=== PATIENT | female | born 1980 | race Caucasian/White ===

== ENCOUNTER 2020-04-08 19:08 | Emergency (ER) | payer MEDICAID, SELFPAY ==
[2020-04-08 19:16] VITALS: BP 118/72; PULSE 85; RESP 16; TEMP 36.6; O2SAT 98; BMI 22.6
--- NOTE | 2020-04-08 19:28 | PC.NURSE ---
Burning and itching sensation <1 month. Bactrim prescribed recently but did not complete the full course. Symptoms have nearly resolved at this time. Pt calm and cooperative.
[2020-04-08 19:35] VITALS: BP 115/69; PULSE 74; RESP 20; TEMP 36.8; O2SAT 97
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
[2020-04-08 20:00] VITALS: BP 114/71; PULSE 96; RESP 16; TEMP 36.9; O2SAT 98
[2020-04-08 20:05] LABS: Glucose Urine UA NEG (NEG); Leukocyte Esterase Urine NEG (NEG); Nitrite Urine NEG (NEG); Specific Gravity - Urine 1.025 (1.005-1.025); Urine Blood NEG (NEG); Urine Ketones NEG (NEG); Urine Protein NEG (NEG-TRACE)
[2020-04-08 20:07] LABS: Appearance Urine CLEAR; Color Urine YELLOW
[2020-04-08 20:08] LABS: UPreg QC Valid YES; Urine Pregnancy NEGATIVE (NEGATIVE)
[2020-04-08] MEDS: metroNIDAZOLE 500 MG TABLET 2000 MG PO (20:13)
[2020-04-08] MEDS: Azithromycin 500 MG TABLET 1000 MG PO (20:14)
[2020-04-08] MEDS: cefTRIAXone sodium 250 MG, Lidocaine HCl 1 % MPF 0.9 ML IM (20:15)
[2020-04-09 14:49] LABS: CT PCR NOT DETECTED (Not Detect.); NG PCR DETECTED (Not Detect.)
[2020-04-10 09:44] LABS: BV Int Neg Control Negative (Negative); BV Int Pos Control Positive (Positive)
== END 2020-04-08 20:18 | disposition home or self-care (01) ==
PROVIDERS: Physician Assistant; Emergency Provider Emergency Medicine; PCP Internal Medicine
DX: N72 Inflammatory disease of cervix uteri (principal); F17.200 Nicotine dependence, unspecified, uncomplicated; Z71.6 Tobacco abuse counseling; Z79.899 Other long term (current) drug therapy
CPT/HCPCS: 81003; 81025; 87480; 87491; 87510; 87591; 87660; 96372; 99284; J0696

== ENCOUNTER 2020-06-09 23:24 | Emergency (ER) | payer MEDICAID, SELFPAY ==
[2020-06-09 23:40] VITALS: BP 107/59; BP 128/84; PULSE 110; PULSE 98; RESP 17; TEMP 37.1; O2SAT 98; BMI 22.6
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
[2020-06-10] MEDS: Lidocaine HCl 1%/Epi 1:100,000 20 ML VIAL 10 ML INFILTRATI (00:08)
--- NOTE | 2020-06-10 00:08 | PC.NURSE ---
pt lidocaine was taken out by another rn administered by the doctor.
--- NOTE | 2020-06-10 00:09 | PC.NURSE ---
pt wants to leave ama. pt declines labs, ct, and anyfurther testing against medi advise. pt has been stapled to her head bleeding controlled. pt up walking around in the room with using inapropriate language.
[2020-06-10 00:14] VITALS: BP 105/65; PULSE 99; RESP 18; O2SAT 97
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
== END 2020-06-10 00:41 | disposition home or self-care (01) ==
PROVIDERS: Emergency Provider Emergency Medicine Emergency Medical Services
DX: S01.81XA Laceration without foreign body of other part of head, initial encounter (principal); S06.0X9A Concussion with loss of consciousness of unspecified duration, initial encounter; Y04.2XXA Assault by strike against or bumped into by another person, initial encounter; F11.20 Opioid dependence, uncomplicated; F17.200 Nicotine dependence, unspecified, uncomplicated; Y93.9 Activity, unspecified; Y92.9 Unspecified place or not applicable; Y99.9 Unspecified external cause status
CPT/HCPCS: 12013; 99284

== ENCOUNTER 2020-06-13 07:45 | Emergency (ER) | payer MEDICAID, SELFPAY | END 2020-06-13 08:58 | disposition left against medical advice (07) | PROVIDERS: Emergency Provider Emergency Medicine; PCP Internal Medicine | DX: Z04.89 Encounter for examination and observation for other specified reasons (principal) ==

== ENCOUNTER 2020-11-12 20:23 | Emergency (ER) | payer MEDICAID, SELFPAY | END 2020-11-12 21:07 | disposition left against medical advice (07) | PROVIDERS: Emergency Provider Emergency Medicine | DX: L02.413 Cutaneous abscess of right upper limb (principal) ==

== ENCOUNTER 2021-01-10 21:21 | Emergency (ER) | payer MEDICAID, SELFPAY ==
[2021-01-10 21:32] VITALS: BP 110/67; PULSE 105; RESP 18; TEMP 36.9; O2SAT 95; BMI 23.8
== END 2021-01-10 22:34 | disposition left against medical advice (07) ==
PROVIDERS: Emergency Provider Emergency Medicine
DX: R30.0 Dysuria (principal)
CPT/HCPCS: 99281; 99283

== ENCOUNTER 2021-11-07 14:42 | Emergency (ER) | payer MEDICAID, SELFPAY ==
[2021-11-07 14:52] VITALS: BP 111/67; PULSE 83; RESP 18; TEMP 37; O2SAT 100; BMI 22.6
== END 2021-11-07 19:24 | disposition left against medical advice (07) ==
PROVIDERS: Emergency Provider Emergency Medicine
DX: H57.11 Ocular pain, right eye (principal)
CPT/HCPCS: 99281

== ENCOUNTER 2021-11-11 18:24 | Emergency (ER) | payer MEDICAID, SELFPAY ==
[2021-11-11 18:31] VITALS: BP 111/70; PULSE 76; RESP 18; TEMP 35.9; O2SAT 93; BMI 23.3
== END 2021-11-11 20:52 | disposition left against medical advice (07) ==
PROVIDERS: Emergency Provider Emergency Medicine; PCP Internal Medicine
DX: S05.91XA Unspecified injury of right eye and orbit, initial encounter (principal); X58.XXXA Exposure to other specified factors, initial encounter; Y93.9 Activity, unspecified; Y92.9 Unspecified place or not applicable; Y99.9 Unspecified external cause status
CPT/HCPCS: 99281

== ENCOUNTER 2022-07-28 05:54 | Emergency (ER) | payer MEDICAID, SELFPAY ==
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
[2022-07-28 06:03] VITALS: BP 124/68; BP 129/68; PULSE 89; PULSE 97; RESP 15; TEMP 36.7; O2SAT 97; BMI 22.6
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
[2022-07-28] MEDS: HYDROmorphone HCl 1 MG/ML SYRINGE IM (06:27)
== END 2022-07-28 06:45 | disposition left against medical advice (07) ==
PROVIDERS: Emergency Provider Emergency Medicine
DX: S09.93XA Unspecified injury of face, initial encounter (principal); M54.2 Cervicalgia; R51.9 Headache, unspecified; Y04.2XXA Assault by strike against or bumped into by another person, initial encounter; Y93.9 Activity, unspecified; Y92.9 Unspecified place or not applicable; Y99.9 Unspecified external cause status; Z79.899 Other long term (current) drug therapy
CPT/HCPCS: 70450; 70486; 72125; 96372; 99284; J1170

== ENCOUNTER 2023-01-06 12:28 | Emergency (ER) | payer MEDICAID, SELFPAY | END 2023-01-06 16:12 | disposition left against medical advice (07) | PROVIDERS: Emergency Provider Emergency Medicine | DX: S05.90XA Unspecified injury of unspecified eye and orbit, initial encounter (principal); X58.XXXA Exposure to other specified factors, initial encounter; Y93.9 Activity, unspecified; Y92.9 Unspecified place or not applicable; Y99.9 Unspecified external cause status ==

== ENCOUNTER 2023-09-18 19:16 | Emergency (ER) | payer MEDICAID, SELFPAY ==
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
[2023-09-18 19:50] VITALS: BP 97/59; PULSE 66; RESP 16; TEMP 36.2; O2SAT 98; BMI 20.2
[2023-09-18 21:01] LABS: Alanine Aminotransferase 12 U/L (0-31); Albumin Level 4.5 g/dL (3.5-5.0); Alkaline Phosphatase 77 U/L (39-117); Anion Gap 17 (12-20); Aspartate Amino Transferase 22 U/L (5-31); Bilirubin Total 0.4 mg/dL (0.0-1.0); Blood Urea Nitrogen 11 mg/dL (9-16); Calcium 10.1 mg/dL (8.4-10.2); Carbon Dioxide 20 mmol/L (22-29); Chloride 105 mmol/L (96-108); Creatinine Clr Calc Pharmacy 73.6; Estimated Glomerular Filt Rate > 60; Glucose Random 75 mg/dL (60-115); Potassium 4.6 mmol/L (3.3-5.1); Sodium 137 mmol/L (135-145); Total Protein 8.9 g/dL (6.5-8.0)
[2023-09-18 23:08] VITALS: BP 105/71; PULSE 60; RESP 16; TEMP 36.5; O2SAT 97
--- NOTE | 2023-09-18 23:11 | MHC.EDTECH ---
THIS PCT JUST ASSUMED CARE OF PATIENT ,VITALS TAKEN ,PT VERY SLEEPY ,RN AWARE .
[2023-09-18 23:54] VITALS: BP 108/77; PULSE 81; RESP 16; TEMP 36.1; O2SAT 95
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
[2023-09-19] MEDS: Ibuprofen 400 MG TABLET PO (00:06)
--- NOTE | 2023-09-19 00:07 | PC.NURSE ---
Pt medicated per mar, pt wanting to be seen by crisis, due to being homeless and blind
[2023-09-19 01:52] VITALS: BP 104/62; PULSE 68; RESP 16; TEMP 36.3; O2SAT 97
[2023-09-19 02:05] LABS: Ethanol < 10 mg/dL
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
[2023-09-19 02:19] LABS: Basophils Absolute Auto 0.1 X10*3/uL (0.0-0.2); Basophils Percent Auto 1.2 % (0-2); Eosinophils Absolute Auto 0.3 X10*3/uL (0.0-0.4); Eosinophils Percent Auto 3.9 % (0-4); Hematocrit 38.1 % (37.0-47.0); Hemoglobin 11.9 g/dl (12.0-16.0); Imm Gran Abs Auto 0.01 X10*3/uL (0.00-0.03); Imm Gran Pct Auto 0.1 % (0.0-0.4); Lymphocytes Absolute Auto 3.2 X10*3/uL (1.2-4.9); Lymphocytes Percent Auto 38.7 % (20-40); Mean Corpuscular HGB Conc 31.2 g/dl (31.0-35.0); Mean Corpuscular Hemoglobin 24.8 pg (27.0-33.0); Mean Corpuscular Volume 79.4 fL (80.0-98.0); Mean Platelet Volume 10.7 fL (9.4-12.3); Monocytes Absolute Auto 0.8 X10*3/uL (0.1-1.2); Monocytes Percent Auto 9.3 % (2-11); Neutrophils Absolute Auto 3.8 x10*3/uL (2.0-8.3); Neutrophils Percent Auto 46.8 % (45-73); PLT CLUMP 1; Red Cell Distribution Width 18.7 % (11.0-16.0); SCAN SMEAR FLAG 1
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
[2023-09-19 02:21] LABS: MANUAL DIFF FLAG NO; White Blood Count 8.2 X10*3/uL (4.8-10.8)
[2023-09-19 02:45] LABS: Acetaminophen LAB < 3 mcg/mL (<30); Salicylate < 5.0 mg/dL (15-30)
--- NOTE | 2023-09-19 03:38 | PC.NURSE ---
pt is sleeping at this time.
[2023-09-19 05:49] VITALS: BP 111/60; PULSE 68; RESP 18; TEMP 36.6; O2SAT 94
[2023-09-19 07:05] LABS: Amphetamine Screen Urine Not Detected (Not Detect); Barbiturates, Urine Not Detected (Not Detect); Benzodiazepines Screen Urine Not Detected (Not Detect); Buprenorphine Scr Not Detected (Not Detect); Cannabinoid Screen Urine Not Detected (Not Detect); Cocaine Screen Urine POSITIVE (Not Detect); Fentanyl, urine POSITIVE (Not Detect); Methadone Screen, Urine Positive (Not Detect); Opiate Screen Urine POSITIVE (Not Detect); Oxycodone Screen Urine Not Detected (Not Detect); Phencyclidine Screen Urine Not Detected (Not Detect)
--- NOTE | 2023-09-19 08:05 | PC.NURSE ---
methadone dose verified with [facility] 185mg form faxed to pharmacy
--- NOTE | 2023-09-19 08:42 | HE.PHANOTE ---
RE: METHADONE DOSING Last dose of methadone 185 mg was given on 09/17/23 at [facility] per Cristina.
[2023-09-19] MEDS: methADONE HCl 20 MG/2 ML ORAL.CONC 185 MG PO (08:52)
[2023-09-19 09:22] VITALS: BP 114/70; PULSE 70; RESP 18; TEMP 36.9; O2SAT 96
== END 2023-09-19 09:43 | disposition home or self-care (01) ==
PROVIDERS: Physician Assistant; Emergency Provider Emergency Medicine
DX: S00.83XA Contusion of other part of head, initial encounter (principal); F19.10 Other psychoactive substance abuse, uncomplicated; F32.A Depression, unspecified; H54.8 Legal blindness, as defined in USA; Y04.2XXA Assault by strike against or bumped into by another person, initial encounter; Y93.9 Activity, unspecified; Y92.9 Unspecified place or not applicable; Y99.9 Unspecified external cause status; Z59.02 Unsheltered homelessness
CPT/HCPCS: 36415; 70450; 70486; 71045; 72125; 80053; 80143; 80179; 80307; 85025; 99285

== ENCOUNTER 2023-09-19 19:38 | Emergency (ER) | payer MEDICAID, SELFPAY ==
[2023-09-19 19:41] VITALS: BP 114/64; BP 99/64; PULSE 136; PULSE 89; RESP 18; TEMP 36.6; O2SAT 97; O2SAT 98; BMI 26.5
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
[2023-09-20 06:23] VITALS: BP 117/65; PULSE 95; RESP 16; TEMP 36.4; O2SAT 97
[2023-09-20 08:12] VITALS: BP 108/62; PULSE 66; RESP 18; TEMP 36.6; O2SAT 98
--- NOTE | 2023-09-20 09:30 | HE.PHANOTE ---
RE METHADONE PT GET METHADONE [address] [facility] LAST DOSED 09/17/23 DENISSE
[2023-09-20] MEDS: methADONE HCl 20 MG/2 ML ORAL.CONC 185 MG PO (09:39)
[2023-09-20 09:44] VITALS: BP 108/62; PULSE 66; RESP 18; TEMP 36.1; O2SAT 98
== END 2023-09-20 09:45 | disposition home or self-care (01) ==
PROVIDERS: Emergency Provider Emergency Medicine
DX: F41.0 Panic disorder [episodic paroxysmal anxiety] (principal); F41.9 Anxiety disorder, unspecified; H54.8 Legal blindness, as defined in USA; Z59.02 Unsheltered homelessness; Z79.891 Long term (current) use of opiate analgesic
CPT/HCPCS: 99283; 99284

== ENCOUNTER 2023-09-28 10:29 | Emergency (ER) | payer MEDICAID, SELFPAY ==
--- NOTE | ~2023-09-28 | XR_ITS ---
EXAMINATION: XR foot LT, XR ankle LT CLINICAL INFORMATION: Reason for Exam lt foot injury COMPARISON: None. TECHNIQUE: AP, lateral, and oblique views of the foot and 2 views of the ankle FINDINGS: No acute fracture or dislocation. Joint spaces are maintained without significant degenerative change. Significant soft tissue swelling overlying the lateral malleolus. XR/XR ankle LT min 3V IMPRESSION: Significant soft tissue swelling overlying the lateral malleolus. A discrete fracture is not identified however given degree of soft tissue swelling consider repeat radiographs in 2 weeks to assess for any interval healing of a nondisplaced distal fibular fracture.
--- NOTE | ~2023-09-28 | XR_ITS ---
EXAMINATION: XR foot LT, XR ankle LT CLINICAL INFORMATION: Reason for Exam lt foot injury COMPARISON: None. TECHNIQUE: AP, lateral, and oblique views of the foot and 2 views of the ankle FINDINGS: No acute fracture or dislocation. Joint spaces are maintained without significant degenerative change. Significant soft tissue swelling overlying the lateral malleolus. XR/XR foot LT min 3V IMPRESSION: Significant soft tissue swelling overlying the lateral malleolus. A discrete fracture is not identified however given degree of soft tissue swelling consider repeat radiographs in 2 weeks to assess for any interval healing of a nondisplaced distal fibular fracture.
[2023-09-28 10:40] VITALS: BP 118/72; PULSE 89; O2SAT 100
[2023-09-28 10:41] VITALS: BP 122/83; PULSE 89; RESP 18; TEMP 36.8; O2SAT 98; BMI 21.0
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
[2023-09-28] MEDS: Ibuprofen 600 MG TABLET PO (12:25)
[2023-09-28 14:02] VITALS: BP 122/83; PULSE 89; RESP 18; TEMP 36.8; O2SAT 98
== END 2023-09-28 14:22 | disposition home or self-care (01) ==
PROVIDERS: Emergency Provider Student in an Organized Health Care Education/Training Program
DX: S93.402A Sprain of unspecified ligament of left ankle, initial encounter (principal); X50.1XXA Overexertion from prolonged static or awkward postures, initial encounter; Y93.9 Activity, unspecified; Y92.9 Unspecified place or not applicable; Y99.9 Unspecified external cause status
CPT/HCPCS: 73610; 73630; 99283

== ENCOUNTER 2023-12-18 11:45 | Emergency (ER) | payer MEDICAID, SELFPAY ==
[2023-12-18 11:49] VITALS: BP 114/67; BP 116/70; PULSE 92; PULSE 94; RESP 18; TEMP 37.1; O2SAT 96; O2SAT 98; BMI 33.7
[2023-12-18 11:57] VITALS: BP 114/67; PULSE 92; RESP 18; TEMP 37.1; O2SAT 96
[2023-12-18 12:48] LABS: MANUAL DIFF FLAG NO
[2023-12-18 12:51] LABS: Basophils Absolute Auto 0.1 X10*3/uL (0.0-0.2); Eosinophils Absolute Auto 0.3 X10*3/uL (0.0-0.4); Eosinophils Percent Auto 3.6 % (0-4); Hematocrit 35.7 % (37.0-47.0); Hemoglobin 11.6 g/dl (12.0-16.0); Imm Gran Abs Auto 0.06 X10*3/uL (0.00-0.03); Imm Gran Pct Auto 0.7 % (0.0-0.4); Lymphocytes Absolute Auto 3.1 X10*3/uL (1.2-4.9); Lymphocytes Percent Auto 36.1 % (20-40); Mean Corpuscular HGB Conc 32.5 g/dl (31.0-35.0); Mean Corpuscular Hemoglobin 28.4 pg (27.0-33.0); Mean Corpuscular Volume 87.5 fL (80.0-98.0); Mean Platelet Volume 10.5 fL (9.4-12.3); Monocytes Absolute Auto 0.8 X10*3/uL (0.1-1.2); Monocytes Percent Auto 9.2 % (2-11); Neutrophils Absolute Auto 4.3 x10*3/uL (2.0-8.3); Neutrophils Percent Auto 49.4 % (45-73); Platelet Count 222 X10*3/uL (160-400); Red Blood Count 4.08 X10*6/uL (4.20-5.50); Red Cell Distribution Width 17.5 % (11.0-16.0); White Blood Count 8.7 X10*3/uL (4.8-10.8)
[2023-12-18 13:00] LABS: INTERNATIONAL NORM RATIO 0.9 (0.9-1.1); Prothrombin Time 10.6 SEC (11.1-13.3)
[2023-12-18 13:03] LABS: Partial Thromboplastin Time 24.3 SEC (26.0-36.8)
[2023-12-18 13:06] LABS: Alanine Aminotransferase 16 U/L (0-31); Alkaline Phosphatase 95 U/L (39-117); Anion Gap 18 (12-20); Aspartate Amino Transferase 26 U/L (5-31); Bilirubin Total 0.1 mg/dL (0.0-1.0); Blood Urea Nitrogen 10 mg/dL (9-16); Calcium 9.8 mg/dL (8.4-10.2); Carbon Dioxide 25 mmol/L (22-29); Chloride 101 mmol/L (96-108); Creatinine Clr Calc Pharmacy 102.1; Estimated Glomerular Filt Rate > 60; Glucose Random 92 mg/dL (60-115); Magnesium 1.9 mg/dL (1.6-2.6); Potassium 4.6 mmol/L (3.3-5.1); Sodium 139 mmol/L (135-145); Total Protein 7.6 g/dL (6.5-8.0)
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
[2023-12-18 14:44] VITALS: BP 114/67; PULSE 92; RESP 18; TEMP 37.1; O2SAT 96
== END 2023-12-18 14:55 | disposition left against medical advice (07) ==
PROVIDERS: Physician Assistant Medical; Emergency Provider Student in an Organized Health Care Education/Training Program
DX: N92.0 Excessive and frequent menstruation with regular cycle (principal); N93.8 Other specified abnormal uterine and vaginal bleeding; Z79.899 Other long term (current) drug therapy
CPT/HCPCS: 36415; 80053; 83735; 85025; 85610; 85730; 99283; 99284

== ENCOUNTER 2024-03-23 08:09 | Emergency (ER) | payer MEDICAID, SELFPAY ==
[2024-03-23 08:18] VITALS: BP 117/71; PULSE 96; RESP 18; TEMP 36.7; O2SAT 92; BMI 35.5
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
[2024-03-23] MEDS: Acetaminophen 325 MG TABLET 975 MG PO (09:18)
--- NOTE | 2024-03-23 10:13 | PC.NURSE ---
patient removed c collar on on, patient educated on risks. patient refusing to wear c collar. aware. patient requesting to leave ama
--- NOTE | 2024-03-23 10:14 | MHC.EDTECH ---
Pt demanding to leave AMA. Attempted to reason with patient however patient is a set on leaving AMA because she is waiting too long. Provider Cirilo Mcnally Md and MELVINA navarro.
== END 2024-03-23 10:17 | disposition left against medical advice (07) ==
PROVIDERS: Emergency Provider Emergency Medicine
DX: S13.4XXA Sprain of ligaments of cervical spine, initial encounter (principal); V43.62XA Car passenger injured in collision with other type car in traffic accident, initial encounter; Y93.89 Activity, other specified; Y92.488 Other paved roadways as the place of occurrence of the external cause; Y99.8 Other external cause status
CPT/HCPCS: 99282; 99283

== ENCOUNTER 2024-12-29 22:12 | Emergency (ER) | payer MEDICAID, SELFPAY ==
[2024-12-29 22:27] VITALS: BP 110/82; BP 126/79; PULSE 75; PULSE 91; RESP 20; TEMP 36.8; O2SAT 94; BMI 51.8
[2024-12-29 22:40] LABS: MANUAL DIFF FLAG NO
[2024-12-29 22:41] VITALS: BP 126/79; PULSE 91; RESP 20; TEMP 36.8; O2SAT 94
[2024-12-29 22:41] LABS: Hematocrit 38.1 % (37.0-47.0); Hemoglobin 12.7 g/dl (12.0-16.0); Imm Gran Abs Auto 0.10 X10*3/uL (0.00-0.03); Imm Gran Pct Auto 0.7 % (0.0-0.4); Lymphocytes Absolute Auto 3.7 X10*3/uL (1.2-4.9); Mean Corpuscular HGB Conc 33.3 g/dl (31.0-35.0); Mean Corpuscular Hemoglobin 28.5 pg (27.0-33.0); Mean Corpuscular Volume 85.6 fL (80.0-98.0); NRBC Abs Auto 0.000 X10*3/uL (0.0-0.012); NRBC Pct Auto 0.0 /100WBC (0.0-0.2); Platelet Count 266 X10*3/uL (160-400); Red Blood Count 4.45 X10*6/uL (4.20-5.50); White Blood Count 13.8 X10*3/uL (4.8-10.8)
[2024-12-29 22:55] LABS: Alanine Aminotransferase 38 U/L (0-31); Albumin Level 4.2 g/dL (3.5-5.0); Alkaline Phosphatase 137 U/L (39-117); Anion Gap 16 (12-20); Aspartate Amino Transferase 29 U/L (5-31); Blood Urea Nitrogen 16 mg/dL (9-16); Calcium 9.0 mg/dL (8.4-10.2); Carbon Dioxide 25 mmol/L (22-29); Chloride 104 mmol/L (96-108); Creatinine Clr Calc Pharmacy 102.9; Estimated Glomerular Filt Rate 59; Potassium 3.6 mmol/L (3.3-5.1); Sodium 141 mmol/L (135-145); Total Protein 8.0 g/dL (6.5-8.0)
--- NOTE | 2024-12-30 00:02 | ED.EYEPROB ---
HPI - Eye Problem General Chief complaint: Eye Problems Stated complaint: ?eye infection Time Seen by Provider: 12/30/24 00:00 Source: patient and EMS Mode of arrival: EMS Limitations: no limitations History of Present Illness ED Provider: HPI Narrative: Patient's legally blind from glaucoma especially the right eye which she can not see anything from left eye she can have light shadows patient is supposed to get enucleation of the eye but patient did not follow up with presentation designer comes here for pain in the right eye with watering and the right forehead pain with nausea patient also does have migraine headache had similar pains in the past no fever no chills patient has not taken her methadone for last 3 days no fever no chills Related Data Home Medications ?Medication ?Instructions ?Recorded ?Confirmed methadone 10 mg/mL oral 185 mg PO DAILY 09/19/23 09/20/23 concentrate (Methadone Intensol) Previous Rx's ?Medication ?Instructions ?Recorded levofloxacin 750 mg tablet 750 mg PO DAILY 7 days #7 tabs 12/30/24 tobramycin 0.3 % eye drops 1 drp ophthalmic (eye) Q4H #5 mL 12/30/24 Allergies Allergy/AdvReac Type Severity Reaction Status Date / Time amoxicillin (AMOXICILLIN) Allergy Unknown ANAPHYLAXIS Verified 12/29/24 22:29 bee pollen (BEE STINGS) Allergy Unknown ANAPHYLAXIS Verified 12/29/24 22:29 diphenhydramine (From Allergy Unknown Angioedema Verified 12/29/24 22:29 Benadryl) morphine (MORPHINE) Allergy Unknown ANAPHYLAXIS Verified 12/29/24 22:29 Review of Systems Review of Systems: Yes all other systems are reviewed and are negative [facility] Past Medical History Medical History Dehydration Anemia Liver disease Lung cancer Lung nodules Gallbladder disease Bipolar disorder Depression Anxiety Gonorrhea Social History Social History Alcohol intake: former Smoked in Last 30 Days: Yes Use of substances other than those prescribed or required for medical reasons: No Substance Use Type: Marijuana and Methamphetamine Advance Directives: No Advance Directives Information Provided: No Patient : No Physical Exam Vital Signs: Vital Signs: Last Vital Signs Temp 98.7 F 12/30/24 00:58 Pulse 83 12/30/24 00:58 Resp 20 12/30/24 00:58 BP 131/86 12/30/24 00:58 Pulse Ox 91 L 12/30/24 00:58 O2 Del Method Room Air 12/30/24 00:58 BMI result Body Mass Index 51.8 Appearance: Alert. Oriented X3. Obese Eyes: Opacified both eyes right eye has a erythema of the conjunctiva no pus discharge unable to see anything from the right eye left eye patient can see light shadows ENT: Pharynx normal. Oral Mucosa moist Neck: Normal inspection. Neck supple. CVS: Normal heart rate and rhythm. Pulses normal. Respiratory: No respiratory distress. Equal air entry bilateral, no wheezing/rales/rhonchi Abdomen: Soft and nontender. Bowel sounds are present, no mass palpable, no CVA tenderness Skin: Skin warm and dry. Normal skin color. Normal skin turgor. Extremities: No lower extremity edema. No calf tenderness Neuro: Oriented X 3. No motor deficit. No sensory deficit.No cerebellar signs , cranial nerves II-XII intact Medications Administered Discontinued Medications Generic Name Dose Route Start Last Admin Trade Name Freq PRN Reason Stop Dose Admin Hydromorphone HCl 2 mg 12/30/24 00:07 12/30/24 00:54 Hydromorphone Hcl 2 Mg Tablet PO 12/30/24 00:08 2 mg ONCE ONE Administration Levofloxacin 750 mg 12/30/24 00:08 12/30/24 00:54 Levofloxacin 750 Mg Tablet PO 12/30/24 00:09 750 mg ONCE ONE Administration Ondansetron HCl 4 mg 12/30/24 00:09 12/30/24 00:54 Ondansetron Odt 4 Mg Tab.Rapdis TRANSLINGU 12/30/24 00:10 4 mg ONCE ONE Administration Tobramycin Sulfate 2 drop 12/30/24 00:07 12/30/24 00:54 Tobramycin Sulfate 0.3% Annelise Op 5 Ml Btl EYE-RIGHT 12/30/24 00:08 2 drop ONCE ONE Administration Medical Decision Making Medical Decision Making MDM Narrative: Patient's with blind eyes secondary to glaucoma with pain in the eye with migraine headache was given Levaquin in the ER and eyedrops patient has had similar pain in the past and advised enucleation will give Levaquin p.o. tobramycin eye drops and advised to follow with presentation designer patient also does have migraine headache could be contributing to this patient felt much better after pain medication in the ER Lab Data MDM Lab Attestation statement: I reviewed the patient's lab results. 12/29/24 22:35 12/29/24 22:35 Labs: Lab Results 12/29/24 Range/Units 22:35 WBC 13.8 H (4.8-10.8) X10*3/uL RBC 4.45 (4.20-5.50) X10*6/uL Hgb 12.7 (12.0-16.0) g/dl Hct 38.1 (37.0-47.0) % MCV 85.6 (80.0-98.0) fL MCH 28.5 (27.0-33.0) pg MCHC 33.3 (31.0-35.0) g/dl RDW 13.0 (11.0-16.0) % Plt Count 266 (160-400) X10*3/uL MPV 9.7 (9.4-12.3) fL Immature Gran % (Auto) 0.7 H (0.0-0.4) % Neut % (Auto) 66.4 (45-73) % Lymph % (Auto) 26.4 (20-40) % [place] % (Auto) 5.6 (2-11) % Eos % (Auto) 0.5 (0-4) % Baso % (Auto) 0.4 (0-2) % Lymph # (Auto) 3.7 (1.2-4.9) X10*3/uL [place] # (Auto) 0.8 (0.1-1.2) X10*3/uL Eos # (Auto) 0.1 (0.0-0.4) X10*3/uL Baso # (Auto) 0.1 (0.0-0.2) X10*3/uL Abs Immat Gran (auto) 0.10 H (0.00-0.03) X10*3/uL Absolute Neuts (auto) 9.2 H (2.0-8.3) x10*3/uL Absolute Nucleated RBC 0.000 (0.0-0.012) X10*3/uL Nucleated RBC % (auto) 0.0 (0.0-0.2) /100WBC Sodium 141 (135-145) mmol/L Potassium 3.6 D (3.3-5.1) mmol/L Chloride 104 (96-108) mmol/L Carbon Dioxide 25 (22-29) mmol/L Anion Gap 16 (12-20) BUN 16 (9-16) mg/dL Creatinine 1.02 (0.5-1.4) mg/dL Estim Creat Clear Calc 102.9 Estimated GFR 59 Random Glucose 86 (60-115) mg/dL Calcium 9.0 D (8.4-10.2) mg/dL Total Bilirubin 0.3 (0.0-1.0) mg/dL AST 29 (5-31) U/L ALT 38 H (0-31) U/L Alkaline Phosphatase 137 H (39-117) U/L Total Protein 8.0 (6.5-8.0) g/dL Albumin 4.2 (3.5-5.0) g/dL Discharge Plan Discharge Clinical Impression: Headache, migraine, Blind painful right eye Patient Disposition: Home, Self-Care Instructions: Migraine Headache (ED), Eye Pain (ED) Additional Instructions: You need to follow up with presentation designer for enucleation of the right blind eye as this causing the pain frequently For eyedrops as prescribed and take antibiotics Prescriptions: New levofloxacin 750 mg tablet 750 mg PO DAILY 7 Days Qty: 7 0RF tobramycin 0.3 % drops 1 drp ophthalmic (eye) Q4H Qty: 5 0RF No Action methadone [Methadone Intensol] 10 mg/mL Concentrate 185 mg PO DAILY Referrals: Nayan Moss [Physician, Ophthalmology] Referral Note: Painful blind eye Print Language: Congolese
[2024-12-30] MEDS: Tobramycin Sulfate 0.3% Sol Op 5 ML BTL 2 DROP EYE-RIGHT (00:54)
[2024-12-30 00:58] VITALS: BP 131/86; PULSE 83; RESP 20; TEMP 37.1; O2SAT 91
[2024-12-30 02:18] VITALS: BP 131/86; PULSE 83; RESP 20; TEMP 37.1; O2SAT 94
== END 2024-12-30 02:19 | disposition home or self-care (01) ==
PROVIDERS: Emergency Provider Internal Medicine
DX: H57.11 Ocular pain, right eye (principal); G43.909 Migraine, unspecified, not intractable, without status migrainosus; H54.40 Blindness, one eye, unspecified eye
CPT/HCPCS: 36415; 80053; 85025; 99283; 99284